=== PATIENT | male | born 1995 | race Caucasian/White ===

== ENCOUNTER → 2018-05-30 | Outpatient (REF) | payer OTHER | LOC: M SMT 13:23 | DX: R33.9 Retention of urine, unspecified (principal) ==

== ENCOUNTER → 2018-06-04 | Outpatient (CLI) | payer OTHER | LOC: M RAD 09:02 | DX: R33.9 Retention of urine, unspecified (principal); R39.89 Other symptoms and signs involving the genitourinary system; N13.4 Hydroureter | CPT/HCPCS: 74176 ==

== ENCOUNTER → 2018-06-08 | Outpatient (CLI) | payer OTHER ==
[2018-06-08 13:39] LABS: ANION GAP 7 MEQ/L (8-16); BLOOD UREA NITROGEN 45 MG/DL (7-18); CALCIUM LEVEL 9.2 MG/DL (8.5-10.1); CARBON DIOXIDE LEVEL 30 MEQ/L (21-32); CHLORIDE LEVEL 108 MEQ/L (98-107); CREATININE FOR GFR 4.61 MG/DL (0.70-1.30); GLOMERULAR FILTRATION RATE 17.1 (>60); GLUCOSE, FASTING 86 MG/DL (70-100); POTASSIUM SERUM 5.2 MEQ/L (3.5-5.1); PSA SCREENING 0.52 NG/ML (< 4.0); SODIUM LEVEL 145 MEQ/L (136-145)
== END ==
LOC: M SMT 09:01
DX: R39.89 Other symptoms and signs involving the genitourinary system (principal); R33.9 Retention of urine, unspecified
CPT/HCPCS: 80048

== ENCOUNTER 2018-06-21 09:22 | Observation (INO) | payer OTHER ==
[2018-06-21] MEDS ORDERED: METAL LOCK LOOP XX (10:06)
[2018-06-21 10:08] LABS: BASO % 0.3 % (0.0-1.0); EOS # 0.1 10^3/uL (0.0-0.50); EOS % 0.6 % (0.0-3.0); HEMATOCRIT 30.1 % (42.0-52.0); HEMOGLOBIN 9.6 g/dl (13.5-17.5); IMMATURE GRANULOCYTE % 0.3 % (0-3.0); LYMPH # 1.1 10^3/uL (1.5-6.5); LYMPH % 9.4 % (24.0-44.0); MEAN CORPUSCULAR HEMOGLOBIN 29.4 pg (27.0-33.0); MEAN CORPUSCULAR HGB CONC 31.9 g/dl (32.0-36.5); MEAN CORPUSCULAR VOLUME 92.3 fl (80.0-96.0); MONO % 8.1 % (0.0-5.0); NEUTROPHILS # 9.9 10^3/uL (1.8-7.7); NEUTROPHILS % 81.3 % (36.0-66.0); PLATELET COUNT, AUTOMATED 335 10^3/uL (150-450); RED BLOOD COUNT 3.26 10^6/uL (4.30-6.10); RED CELL DISTRIBUTION WIDTH 12.7 % (11.5-14.5); WHITE BLOOD COUNT 12.2 10^3/uL (4.0-10.0)
[2018-06-21 10:35] LABS: ALBUMIN 3.1 GM/DL (3.2-5.2); ALBUMIN/GLOBULIN RATIO 0.78 (1.00-1.93); ALKALINE PHOSPHATASE 54 U/L (45-117); ALT/SGPT 14 U/L (12-78); ANION GAP 9 MEQ/L (8-16); AST/SGOT 11 U/L (7-37); BILIRUBIN,DIRECT < 0.1 MG/DL (0.0-0.2); BILIRUBIN,TOTAL 0.2 MG/DL (0.2-1.0); BLOOD UREA NITROGEN 50 MG/DL (7-18); CALCIUM LEVEL 8.9 MG/DL (8.5-10.1); CARBON DIOXIDE LEVEL 25 MEQ/L (21-32); CHLORIDE LEVEL 105 MEQ/L (98-107); CREATININE FOR GFR 5.93 MG/DL (0.70-1.30); GLOMERULAR FILTRATION RATE 12.8 (>60); GLUCOSE, FASTING 101 MG/DL (70-100); LIPASE 243 U/L (73-393); MAGNESIUM LEVEL 2.2 MG/DL (1.8-2.4); PHOSPHORUS LEVEL 2.5 MG/DL (2.5-4.9); POTASSIUM SERUM 5.2 MEQ/L (3.5-5.1); SODIUM LEVEL 139 MEQ/L (136-145); TOTAL PROTEIN 7.1 GM/DL (6.4-8.2)
[2018-06-21 10:37] LABS: CK-MB VALUE MASS < 1.0 NG/ML (<3.6); CPK CREATINE PHOSPHOKINASE 366 U/L (39-308); MB/CK RELATIVE INDEX 0.27 (< OR =4); TROPONIN I < 0.02 NG/ML (< 0.10)
[2018-06-21] MEDS: MORPHINE 4 MG/ML 1ML VIAL/SYRINGE (J2270) IV (10:49)
[2018-06-21] MEDS: LIDOCAINE 2% 5ML JELLY UROJET TOP (10:50)
[2018-06-21 12:11] LABS: AMORPHOUS SEDIMENT RFX SMALL (NEGATIVE); KETONE, URINE AUTO RFX NEGATIVE (NEGATIVE); MUCUS, URINE RFX SMALL (NEGATIVE); NITRITE, URINE AUTO RFX NEGATIVE (NEGATIVE); RBC, URINE AUTO RFX 17 /HPF (0-3); SQUAM EPITHELIAL CELL UR AURFX 0 /HPF (0-6)
[2018-06-21 12:16] LABS: LEUKOCYTE ESTERASE UR AUTO RFX 1+ (NEGATIVE); WBC, URINE AUTO RFX 34 /HPF (0-3)
[2018-06-21] MEDS: HEPARIN SOD (PORCINE) 5000 UNITS/ML VIAL SC ×2 (15:32→21:01)
[2018-06-21 19:13] LABS: FERRITIN 512 NG/ML (26-388); IRON (FE) 14 UG/DL (65-175); PERCENT SATURATION 6.8 % (19.7-50.0); TOTAL IRON BINDING CAPACITY 207 UG/DL (250-450)
[2018-06-21 19:22] LABS: TOTAL 25(OH) VITAMIN D 17.5 NG/ML (30.0-100.0)
[2018-06-21 19:22] LABS: PTH INTACT 66.2 PG/ML (18.5-88.0)
[2018-06-21 20:28] LABS: CHLAMYDIA DNA AMPLIFICATION NEGATIVE (NEGATIVE); GC DNA AMPLIFICATION NEGATIVE (NEGATIVE)
[2018-06-21] MEDS: NS 0.45% 1,000 ML IV (21:01)
[2018-06-21] MEDS: ACETAMINOPHEN TAB 650MG DOSE (2X325MG) PO (21:02)
[2018-06-22] MEDS: HEPARIN SOD (PORCINE) 5000 UNITS/ML VIAL SC (06:54)
[2018-06-22] MEDS: NS 0.45% 1,000 ML IV (06:54)
[2018-06-22 08:07] LABS: BASO # 0.1 10^3/uL (0.0-0.2); BASO % 0.7 % (0.0-1.0); EOS # 0.2 10^3/uL (0.0-0.50); EOS % 1.5 % (0.0-3.0); HEMATOCRIT 32.6 % (42.0-52.0); HEMOGLOBIN 10.3 g/dl (13.5-17.5); IMMATURE GRANULOCYTE % 0.4 % (0-3.0); LYMPH # 2.4 10^3/uL (1.5-6.5); LYMPH % 22.4 % (24.0-44.0); MEAN CORPUSCULAR HGB CONC 31.6 g/dl (32.0-36.5); MEAN CORPUSCULAR VOLUME 91.8 fl (80.0-96.0); MONO # 0.9 10^3/uL (0.0-0.8); MONO % 8.5 % (0.0-5.0); NEUTROPHILS # 7.2 10^3/uL (1.8-7.7); NEUTROPHILS % 66.5 % (36.0-66.0); PLATELET COUNT, AUTOMATED 360 10^3/uL (150-450); RED BLOOD COUNT 3.55 10^6/uL (4.30-6.10); RED CELL DISTRIBUTION WIDTH 12.5 % (11.5-14.5); WHITE BLOOD COUNT 10.8 10^3/uL (4.0-10.0)
[2018-06-22 08:26] LABS: BLOOD UREA NITROGEN 49 MG/DL (7-18); GLUCOSE, FASTING 95 MG/DL (70-100)
[2018-06-22 08:27] LABS: ANION GAP 9 MEQ/L (8-16); CALCIUM LEVEL 9.3 MG/DL (8.5-10.1); CARBON DIOXIDE LEVEL 25 MEQ/L (21-32); CHLORIDE LEVEL 104 MEQ/L (98-107); CREATININE FOR GFR 5.73 MG/DL (0.70-1.30); GLOMERULAR FILTRATION RATE 13.3 (>60); MAGNESIUM LEVEL 1.8 MG/DL (1.8-2.4); POTASSIUM SERUM 4.9 MEQ/L (3.5-5.1); SODIUM LEVEL 138 MEQ/L (136-145)
[2018-06-22 08:29] LABS: CHOLESTEROL LEVEL 139 MG/DL (<200); HDL CHOLESTEROL 25 MG/DL (>40); LDL CHOLESTEROL 75 MG/DL (<100); NON-HDL-C 114 MG/DL; TRIGLYCERIDES LEVEL 196 MG/DL (<150)
[2018-06-22] MEDS: TAMSULOSIN 0.4 MG CAP PO (09:47)
[2018-06-22] MEDS: VITAMIN D 1,000 INTERNATIONAL UNITS TABLET PO (09:47)
[2018-06-22] MEDS: FERROUS GLUCONATE 324 MG TAB PO (09:47)
[2018-06-22 11:00] LABS: HIV 1&2 SCREEN CENTAUR NEGATIVE (NEGATIVE)
[2018-06-22] MEDS: FINASTERIDE 5 MG TAB PO (13:58)
== END 2018-06-22 15:00 | disposition home or self-care (01) ==
LOC: M ED 09:22 → M ED INP 13:26 → M PED 14:42
DX: N17.9 Acute kidney failure, unspecified (principal); N18.9 Chronic kidney disease, unspecified; I12.9 Hypertensive chronic kidney disease with stage 1 through stage 4 chronic kidney disease, or unspecified chronic kidney disease; N40.1 Benign prostatic hyperplasia with lower urinary tract symptoms; N13.30 Unspecified hydronephrosis; D50.9 Iron deficiency anemia, unspecified; Z79.899 Other long term (current) drug therapy
CPT/HCPCS: J2270

== ENCOUNTER → 2018-06-29 | Outpatient (CLI) | payer OTHER ==
[2018-06-29 17:35] LABS: ANION GAP 9 MEQ/L (8-16); BLOOD UREA NITROGEN 28 MG/DL (7-18); CALCIUM LEVEL 8.6 MG/DL (8.5-10.1); CARBON DIOXIDE LEVEL 28 MEQ/L (21-32); CHLORIDE LEVEL 106 MEQ/L (98-107); CREATININE FOR GFR 3.81 MG/DL (0.70-1.30); GLOMERULAR FILTRATION RATE 21.2 (>60); GLUCOSE, FASTING 100 MG/DL (70-100); POTASSIUM SERUM 4.8 MEQ/L (3.5-5.1); SODIUM LEVEL 143 MEQ/L (136-145)
== END ==
LOC: M SMT 15:06
DX: R33.9 Retention of urine, unspecified (principal)
CPT/HCPCS: 80048

== ENCOUNTER → 2018-07-02 | Outpatient (REF) | payer OTHER ==
[2018-07-03 13:25] LABS: APPEARANCE, URINE CLOUDY (CLEAR); BACTERIA, URINE AUTO 1+ (NEGATIVE); BILIRUBIN, URINE AUTO NEGATIVE (NEGATIVE); BLOOD, URINE BLOOD 1+ (NEGATIVE); COLOR, URINE YELLOW (YELLOW); GLUCOSE, URINE (UA) AUTO NEGATIVE (NEGATIVE); KETONE, URINE AUTO NEGATIVE (NEGATIVE); LEUKOCYTE ESTERASE, URINE AUTO 3+ (NEGATIVE); NITRITE, URINE AUTO NEGATIVE (NEGATIVE); PROTEIN, URINE AUTO 2+ mg/dL (NEGATIVE); RBC, URINE AUTO 5 /HPF (0-3); SPECIFIC GRAVITY URINE AUTO 1.009 (1.002-1.035); SQUAMOUS EPITHELIAL CELL UR AU 0 /HPF (0-6); UROBILINOGEN, URINE AUTO 0.2 mg/dL (0.0-2.0); WBC, URINE AUTO TNTC /HPF (0-3)
== END ==
LOC: M SMT 07-03 13:01
DX: R33.9 Retention of urine, unspecified (principal)

== ENCOUNTER → 2018-07-25 | Outpatient (CLI) | payer OTHER ==
[~2018-07-25] MED LIST: CYSTO-CONRAY II 17.2% 250ML VIAL (Q9958) As Ordered
== END ==
LOC: M RADPRO 12:11
DX: N39.0 Urinary tract infection, site not specified (principal); R33.9 Retention of urine, unspecified
CPT/HCPCS: 52000

== ENCOUNTER → 2018-08-07 | Outpatient (CLI) | payer OTHER ==
[~2018-08-07] MED LIST changes: -CYSTO-CONRAY II 17.2% 250ML VIAL (Q9958) As Ordered; +FUROSEMIDE 20 MG/2 ML VIAL (J1940) As Ordered
== END ==
LOC: M RAD 12:24
DX: N39.0 Urinary tract infection, site not specified (principal); R33.9 Retention of urine, unspecified; N13.30 Unspecified hydronephrosis
CPT/HCPCS: J1940

== ENCOUNTER → 2018-11-07 | Outpatient (REF) | payer OTHER ==
[~2018-11-07] MED LIST changes: +FERR32TA PO; +FINA5TAB2 PO; +FLOM0.4C39 PO; -FUROSEMIDE 20 MG/2 ML VIAL (J1940) As Ordered; +LISI10TA4 PO; +VITAD1000T PO
[2018-11-07 13:47] LABS: PERCENT SATURATION 25.3 % (19.7-50.0)
== END ==
LOC: M LAB REF 13:19
PROVIDERS: ATTEND Internal Medicine Nephrology
DX: D50.9 Iron deficiency anemia, unspecified (principal)

== ENCOUNTER 2021-09-30 07:14 | Inpatient (IN) | payer OTHER ==
[~2021-09-30] VITALS: Ht 175.3 cm; Wt 74.1 kg
[~2021-09-30 07:14] MED LIST changes: +CHOL100029 PO; +LISI10TA22 PO; -LISI10TA4 PO; -VITAD1000T PO
[2021-09-30] MEDS ORDERED: LIDOCAINE 2% 5ML JELLY UROJET TOP ONE (07:35)
[2021-09-30] MEDS ORDERED: KETOROLAC 30 MG/ML 1ML VIAL IV ONE (08:55)
[2021-09-30] MEDS ORDERED: NS 1,000 ML IV ONE ×2 (08:55→09:25)
[2021-09-30 09:13] LABS: BASO % 0.2 % (0.0-1.0); HEMATOCRIT 46.3 % (42.0-52.0); HEMOGLOBIN 15.9 g/dl (13.5-17.5); LYMPH # 0.5 10^3/uL (1.5-5.0); LYMPH % 2.3 % (24.0-44.0); MEAN CORPUSCULAR HEMOGLOBIN 30.6 pg (27.0-33.0); MEAN CORPUSCULAR HGB CONC 34.3 g/dl (32.0-36.5); MEAN CORPUSCULAR VOLUME 89.2 fl (80.0-96.0); MONO # 1.4 10^3/uL (0.0-0.8); MONO % 6.1 % (2.0-8.0); NEUTROPHILS # 20.3 10^3/uL (1.5-8.5); NEUTROPHILS % 90.7 % (36.0-66.0); PLATELET COUNT, AUTOMATED 223 10^3/uL (150-450); RED BLOOD COUNT 5.19 10^6/uL (4.30-6.10); WHITE BLOOD COUNT 22.3 10^3/uL (4.0-10.0)
[2021-09-30] MEDS ORDERED: MORPHINE 4 MG/ML 1ML VIAL/SYRINGE (J2270) IV ONE (09:25)
[2021-09-30 09:34] LABS: ERYTHROCYTE SEDIMENTATION RATE 3 mm/hr (0-15)
[2021-09-30 09:39] LABS: ALBUMIN 4.3 GM/DL (3.2-5.2); BILIRUBIN,DIRECT 0.2 MG/DL (0.0-0.2); BILIRUBIN,TOTAL 0.9 MG/DL (0.2-1.0); C REACTIVE PROTEIN QUANTITATIV 8.83 MG/DL (0.00-0.30); TOTAL PROTEIN 7.7 GM/DL (6.4-8.2)
[2021-09-30] MEDS ORDERED: PIPERACILLIN/TAZOBACTAM SOD 3.375 GM in D5W MINI-BAG PLUS 50 ML IV ONE (10:50)
[2021-09-30 11:13] LABS: GC DNA AMPLIFICATION NEGATIVE (NEGATIVE)
[2021-09-30] MEDS ORDERED: ALLO300T2 PO (11:59)
[2021-09-30] MEDS ORDERED: AMLO1TAB24 PO (11:59)
[2021-09-30] MEDS ORDERED: CALC1CAP31 PO (11:59)
[2021-09-30] MEDS ORDERED: D31000TA2 PO (11:59)
[2021-09-30] MEDS ORDERED: FINA5TAB2 PO (11:59)
[2021-09-30] MEDS ORDERED: HOME MED LIST COMPLETE! XX SCH (12:00)
[2021-09-30] MEDS ORDERED: ACETAMINOPHEN TAB 650MG DOSE (2X325MG) PO PRN (12:20)
[2021-09-30 12:27] LABS: CREATININE FOR GFR 1.96 MG/DL (0.70-1.30); GLOMERULAR FILTRATION RATE 44.6 (>60); POTASSIUM SERUM 3.6 MEQ/L (3.5-5.1)
[2021-09-30 14:00] VITALS: BP 158/72
[2021-09-30] MEDS: TAMSULOSIN 0.4 MG CAP PO SCH (14:14)
[2021-09-30] MEDS: VITAMIN D 1,000 INTERNATIONAL UNITS TABLET PO SCH (14:14)
[2021-09-30] MEDS: allopurinoL 300 MG TAB PO SCH (14:14)
[2021-09-30] MEDS: FINASTERIDE 5 MG TAB PO SCH (14:14)
[2021-09-30 15:52] VITALS: BP 158/72
[2021-09-30 16:24] LABS: HEMATOCRIT 42.3 % (42.0-52.0); HEMOGLOBIN 14.4 g/dl (13.5-17.5); MEAN CORPUSCULAR HEMOGLOBIN 30.4 pg (27.0-33.0); MEAN CORPUSCULAR VOLUME 89.2 fl (80.0-96.0); PLATELET COUNT, AUTOMATED 188 10^3/uL (150-450); RED BLOOD COUNT 4.74 10^6/uL (4.30-6.10); WHITE BLOOD COUNT 21.8 10^3/uL (4.0-10.0)
[2021-09-30] MEDS ORDERED: MORPHINE 2 MG/ML 1ML VIAL (J2270) IV PRN ×2 (17:25→20:30)
[2021-09-30] MEDS: PIPERACILLIN/TAZOBACTAM SOD 3.375 GM in D5W MINI-BAG PLUS 50 ML IV SCH (17:27)
[2021-09-30] MEDS ORDERED: BUPIVACAINE/EPIN 0.25% 30 ML VIAL As Ordered ONE (17:28)
[2021-09-30] MEDS ORDERED: KETOROLAC 60MG 2ML VIAL As Ordered ONE (18:05)
[2021-09-30] MEDS ORDERED: ONDANSETRON 4MG/2ML VIAL As Ordered ONE (18:05)
[2021-09-30] MEDS ORDERED: propofoL 200 MG/20 ML VIAL As Ordered ONE (18:05)
[2021-09-30] MEDS ORDERED: dexameTHASONE 4 MG/ML 1ML VIAL (J1100 PER 1MG) As Ordered ONE (18:05)
[2021-09-30] MEDS ORDERED: ACETAMINOPHEN 1000MG 100ML IV BTL (OFIRMEV) (J0131 PER 10MG) As Ordered ONE (18:05)
[2021-09-30] MEDS ORDERED: METOCLOPRAMIDE INJ 10MG/2ML VIAL (J2765 PER 1) As Ordered ONE (18:05)
[2021-09-30] MEDS ORDERED: LIDOCAINE 2% 100MG/5ML SDV (FOR ANES.) As Ordered ONE (18:05)
[2021-09-30] MEDS ORDERED: ROCURONIUM BROMIDE 50 MG/5 ML VIAL As Ordered ONE (18:05)
[2021-09-30] MEDS ORDERED: fentaNYL 100 MCG/2 ML INJECTION As Ordered ONE (18:06)
[2021-09-30] MEDS ORDERED: MIDAZOLAM INJ 2MG/2ML VIAL (J2250 PER 1MG) As Ordered ONE (18:06)
[2021-09-30] MEDS ORDERED: SUGAMMADEX SODIUM 500 MG/5 ML VIAL (BRIDION) As Ordered ONE (20:19)
[2021-09-30] MEDS ORDERED: ONDANSETRON 4MG/2ML VIAL IV PRN (20:40)
[2021-09-30] MEDS ORDERED: oxyCODONE 5MG TAB PO PRN (20:40)
[2021-09-30] MEDS ORDERED: fentaNYL 100 MCG/2 ML INJECTION IV PRN (20:40)
[2021-09-30] MEDS ORDERED: LR 1,000 ML IV SCH (20:40)
[2021-09-30] MEDS ORDERED: KETOROLAC 30 MG/ML 1ML VIAL IV SCH (21:00)
[2021-09-30 21:15] VITALS: BP 126/84
[2021-09-30 21:45] VITALS: BP 132/71
[2021-09-30 22:15] VITALS: BP 132/70
[2021-09-30 23:15] VITALS: BP 129/72
[2021-10-01] VITALS (8 sets, daily range): BP systolic 103–144; BP diastolic 60–93
[2021-10-01] MEDS: KETOROLAC 30 MG/ML 1ML VIAL IV SCH ×5 (05:57→23:40)
[2021-10-01] MEDS: PIPERACILLIN/TAZOBACTAM SOD 3.375 GM in D5W MINI-BAG PLUS 50 ML IV SCH ×6 (05:57→23:41)
[2021-10-01 07:28] LABS: HEMATOCRIT 45.3 % (42.0-52.0); HEMOGLOBIN 15.2 g/dl (13.5-17.5); MEAN CORPUSCULAR HEMOGLOBIN 30.8 pg (27.0-33.0); MEAN CORPUSCULAR HGB CONC 33.6 g/dl (32.0-36.5); MEAN CORPUSCULAR VOLUME 91.9 fl (80.0-96.0); PLATELET COUNT, AUTOMATED 189 10^3/uL (150-450); RED BLOOD COUNT 4.93 10^6/uL (4.30-6.10)
[2021-10-01 07:45] LABS: CALCIUM LEVEL 9.5 MG/DL (8.5-10.1); CREATININE FOR GFR 2.28 MG/DL (0.70-1.30); GLOMERULAR FILTRATION RATE 37.4 (>60); POTASSIUM SERUM 4.2 MEQ/L (3.5-5.1)
[2021-10-01] MEDS: FINASTERIDE 5 MG TAB PO SCH (08:28)
[2021-10-01] MEDS: allopurinoL 300 MG TAB PO SCH (08:28)
[2021-10-01] MEDS: VITAMIN D 1,000 INTERNATIONAL UNITS TABLET PO SCH (08:28)
[2021-10-01] MEDS: TAMSULOSIN 0.4 MG CAP PO SCH (08:28)
[2021-10-01] MEDS ORDERED: INFLUENZA QUADRIVALENT PF VACCINE 0.5ML SYRINGE IM ONE (09:00)
[2021-10-01] MEDS ORDERED: CALCITRIOL 0.25 MCG CAP (S0169) PO SCH (09:00)
[2021-10-02] MEDS: PIPERACILLIN/TAZOBACTAM SOD 3.375 GM in D5W MINI-BAG PLUS 50 ML IV SCH (05:08)
[2021-10-02] MEDS: KETOROLAC 30 MG/ML 1ML VIAL IV SCH ×2 (05:09→12:00)
[2021-10-02 06:00] VITALS: BP 142/86
[2021-10-02] MEDS: TAMSULOSIN 0.4 MG CAP PO SCH (08:46)
[2021-10-02] MEDS: VITAMIN D 1,000 INTERNATIONAL UNITS TABLET PO SCH (08:46)
[2021-10-02] MEDS: allopurinoL 300 MG TAB PO SCH (08:46)
[2021-10-02] MEDS: FINASTERIDE 5 MG TAB PO SCH (08:46)
[2021-10-02 08:47] VITALS: BP 145/104
[2021-10-02 09:22] LABS: HEMATOCRIT 43.3 % (42.0-52.0); HEMOGLOBIN 14.6 g/dl (13.5-17.5); MEAN CORPUSCULAR HEMOGLOBIN 30.7 pg (27.0-33.0); MEAN CORPUSCULAR HGB CONC 33.7 g/dl (32.0-36.5); PLATELET COUNT, AUTOMATED 219 10^3/uL (150-450); RED BLOOD COUNT 4.76 10^6/uL (4.30-6.10); WHITE BLOOD COUNT 17.8 10^3/uL (4.0-10.0)
[2021-10-02] MEDS ORDERED: AMOX875T2 PO (09:55)
[2021-10-02] MEDS ORDERED: AUGMENTIN 875 MG TAB PO ONE (11:00)
[2021-10-03 15:51] LABS: MAGNESIUM LEVEL 1.6 MG/DL (1.7-2.2)
== END 2021-10-02 13:39 | disposition home or self-care (01) | DRG 340 ==
LOC: EDBD 07:14 → M ED 07:14 → M ED INP 12:20 → ENRESERV 14:08 → M MSPAV 15:04
PROVIDERS: ADMIT Family Medicine; ATTEND Family Medicine
PROC: 0DTJ4ZZ Resection of Appendix, Percutaneous Endoscopic Approach (ICD-10-PCS; principal; 2021-09-30 18:00)
DX: K35.32 Acute appendicitis with perforation, localized peritonitis, and gangrene, without abscess (principal); N40.1 Benign prostatic hyperplasia with lower urinary tract symptoms; N13.9 Obstructive and reflux uropathy, unspecified; Z79.899 Other long term (current) drug therapy

== ENCOUNTER 2021-11-06 14:57 | Inpatient (IN) | payer OTHER ==
[~2021-11-06] VITALS: Ht 175.3 cm; Wt 76.0 kg
[~2021-11-06 14:57] MED LIST changes: +ALLO300T2 PO; +AMLO1TAB24 PO; +AMOX875T2 PO; +CALC1CAP31 PO; +VITA100093 PO
[2021-11-06] MEDS: NS 1,000 ML IV SCH (15:00)
[2021-11-06 16:06] LABS: BASO # 0.1 10^3/uL (0.0-0.2); BASO % 0.3 % (0.0-1.0); EOS % 0.1 % (0.0-3.0); HEMATOCRIT 42.3 % (42.0-52.0); HEMOGLOBIN 14.5 g/dl (13.5-17.5); LYMPH # 0.8 10^3/uL (1.5-5.0); LYMPH % 3.8 % (24.0-44.0); MEAN CORPUSCULAR HEMOGLOBIN 30.1 pg (27.0-33.0); MEAN CORPUSCULAR HGB CONC 34.3 g/dl (32.0-36.5); MEAN CORPUSCULAR VOLUME 87.9 fl (80.0-96.0); MONO % 9.1 % (2.0-8.0); NEUTROPHILS # 16.8 10^3/uL (1.5-8.5); NEUTROPHILS % 86.1 % (36.0-66.0); PLATELET COUNT, AUTOMATED 232 10^3/uL (150-450); RED BLOOD COUNT 4.81 10^6/uL (4.30-6.10); WHITE BLOOD COUNT 19.5 10^3/uL (4.0-10.0)
[2021-11-06 16:25] LABS: ERYTHROCYTE SEDIMENTATION RATE 47 mm/hr (0-15)
[2021-11-06 16:31] LABS: MONO # 1.8 10^3/uL (0.0-0.8)
[2021-11-06 16:33] LABS: ALBUMIN 3.6 GM/DL (3.2-5.2); BILIRUBIN,TOTAL 0.6 MG/DL (0.2-1.0); C REACTIVE PROTEIN QUANTITATIV 15.4 MG/DL (0.00-0.30); CALCIUM LEVEL 9.1 MG/DL (8.5-10.1); CREATININE FOR GFR 2.3 MG/DL (0.70-1.30); GLOMERULAR FILTRATION RATE 37.1 (>60); POTASSIUM SERUM 3.7 MEQ/L (3.5-5.1); TOTAL PROTEIN 7.2 GM/DL (6.4-8.2)
[2021-11-06] MEDS ORDERED: cefTRIAXone SOD 1 GM in D5W MINI-BAG PLUS 50 ML IV ONE (16:50)
[2021-11-06] MEDS ORDERED: ACETAMINOPHEN 500 MG TAB PO ONE (16:55)
[2021-11-06] MEDS ORDERED: LIDOCAINE 2% 5ML JELLY UROJET TOP PRN (17:25)
[2021-11-06] MEDS ORDERED: NS 1,000 ML IV ONE ×2 (19:15→23:40)
[2021-11-06] MEDS ORDERED: HOME MED LIST COMPLETE! XX SCH (19:20)
[2021-11-06] MEDS: ACETAMINOPHEN TAB 650MG DOSE (2X325MG) PO PRN (21:38)
[2021-11-07] MEDS ORDERED: ACETAMINOPHEN 325 MG TAB PO ONE
[2021-11-07] MEDS ORDERED: HOME MED LIST COMPLETE! XX SCH (00:35)
[2021-11-07] MEDS: NS 1,000 ML IV SCH ×3 (02:45→22:32)
[2021-11-07] MEDS: ACETAMINOPHEN TAB 650MG DOSE (2X325MG) PO PRN ×2 (05:58→15:00)
[2021-11-07 08:00] VITALS: BP 125/66
[2021-11-07 08:35] LABS: BASO # 0.1 10^3/uL (0.0-0.2); BASO % 0.2 % (0.0-1.0); HEMATOCRIT 39.1 % (42.0-52.0); HEMOGLOBIN 13.1 g/dl (13.5-17.5); LYMPH # 1.1 10^3/uL (1.5-5.0); LYMPH % 4.6 % (24.0-44.0); MEAN CORPUSCULAR HEMOGLOBIN 29.8 pg (27.0-33.0); MEAN CORPUSCULAR HGB CONC 33.5 g/dl (32.0-36.5); MEAN CORPUSCULAR VOLUME 88.9 fl (80.0-96.0); NEUTROPHILS % 85.4 % (36.0-66.0); PLATELET COUNT, AUTOMATED 203 10^3/uL (150-450); WHITE BLOOD COUNT 23.4 10^3/uL (4.0-10.0)
[2021-11-07] MEDS: allopurinoL 300 MG TAB PO SCH (08:44)
[2021-11-07] MEDS: TAMSULOSIN 0.4 MG CAP PO SCH (08:44)
[2021-11-07] MEDS: VITAMIN D 1,000 INTERNATIONAL UNITS TABLET PO SCH (08:44)
[2021-11-07] MEDS: FINASTERIDE 5 MG TAB PO SCH (08:44)
[2021-11-07 08:54] LABS: MONO # 2.1 10^3/uL (0.0-0.8)
[2021-11-07 09:05] LABS: ACETAMINOPHEN LEVEL 7.3 UG/ML (10.0-30.0); CALCIUM LEVEL 8.4 MG/DL (8.5-10.1); CREATININE FOR GFR 1.8 MG/DL (0.70-1.30); GLOMERULAR FILTRATION RATE 48.8 (>60); MAGNESIUM LEVEL 1.7 MG/DL (1.8-2.4); POTASSIUM SERUM 3.7 MEQ/L (3.5-5.1)
[2021-11-07 09:44] LABS: C REACTIVE PROTEIN QUANTITATIV 17.7 MG/DL (0.00-0.30)
[2021-11-07 10:15] LABS: AMPHETAMINES LEVEL URINE NEGATIVE (NEGATIVE); BARBITURATES URINE NEGATIVE (NEGATIVE); BENZODIAZEPINES URINE NEGATIVE (NEGATIVE); CANNABINOIDS URINE POSITIVE (NEGATIVE); COCAINE METABOLITE URINE NEGATIVE (NEGATIVE); METHADONE URINE NEGATIVE (NEGATIVE); OPIATES URINE NEGATIVE (NEGATIVE); PHENCYCLIDINE URINE NEGATIVE (NEGATIVE)
[2021-11-07] MEDS: MAG SULF 1GM/100ML (MAG RUN) 1 GM in IV 1 EA IV SCH ×2 (12:03→16:40)
[2021-11-07 14:00] VITALS: BP 128/71
[2021-11-07] MEDS: HEPARIN SOD (PORCINE) 5000UNITS/ML 1ML VIAL/SYRINGE SQ SCH ×2 (14:38→21:26)
[2021-11-07] MEDS: PIPERACILLIN/TAZOBACTAM SOD 3.375 GM in D5W MINI-BAG PLUS 50 ML IV SCH ×2 (14:38→20:22)
[2021-11-07] MEDS ORDERED: cefTRIAXone SOD 1 GM in D5W MINI-BAG PLUS 50 ML IV SCH (17:00)
[2021-11-07 17:25] VITALS: BP 136/71
[2021-11-07 20:29] VITALS: BP 125/72
[2021-11-07] MEDS ORDERED: CHLORASEPTIC SPRAY MT PRN (21:35)
[2021-11-08] MEDS: PIPERACILLIN/TAZOBACTAM SOD 3.375 GM in D5W MINI-BAG PLUS 50 ML IV SCH ×4 (01:02→20:12)
[2021-11-08 05:39] VITALS: BP 124/81
[2021-11-08 06:44] LABS: BASO # 0.1 10^3/uL (0.0-0.2); BASO % 0.5 % (0.0-1.0); EOS % 0.3 % (0.0-3.0); HEMATOCRIT 35.5 % (42.0-52.0); LYMPH % 17.7 % (24.0-44.0); MEAN CORPUSCULAR HGB CONC 33.8 g/dl (32.0-36.5); MEAN CORPUSCULAR VOLUME 88.8 fl (80.0-96.0); MONO # 1.1 10^3/uL (0.0-0.8); MONO % 9.6 % (2.0-8.0); NEUTROPHILS # 8.2 10^3/uL (1.5-8.5); NEUTROPHILS % 71.5 % (36.0-66.0); PLATELET COUNT, AUTOMATED 219 10^3/uL (150-450); WHITE BLOOD COUNT 11.5 10^3/uL (4.0-10.0)
[2021-11-08 07:04] LABS: C REACTIVE PROTEIN QUANTITATIV 18.8 MG/DL (0.00-0.30); CALCIUM LEVEL 8.9 MG/DL (8.5-10.1); CREATININE FOR GFR 1.85 MG/DL (0.70-1.30); GLOMERULAR FILTRATION RATE 47.3 (>60); POTASSIUM SERUM 3.6 MEQ/L (3.5-5.1)
[2021-11-08] MEDS ORDERED: VANCOMYCIN HCL 1,000 MG, VIAL MATE ADAPTER 1 EACH in NS 250 ML IV SCH (07:05)
[2021-11-08] MEDS ORDERED: ATORVASTATIN 20 MG TAB PO SCH (09:00)
[2021-11-08] MEDS ORDERED: ASPIRIN 81 MG CHEW TABLET PO SCH (09:00)
[2021-11-08] MEDS ORDERED: CALCITRIOL 0.25 MCG CAP (S0169) PO SCH (09:00)
[2021-11-08] MEDS: TAMSULOSIN 0.4 MG CAP PO SCH (09:05)
[2021-11-08] MEDS: FINASTERIDE 5 MG TAB PO SCH (09:05)
[2021-11-08] MEDS: VITAMIN D 1,000 INTERNATIONAL UNITS TABLET PO SCH (09:05)
[2021-11-08] MEDS: NS 1,000 ML IV SCH ×2 (09:05→13:12)
[2021-11-08] MEDS: allopurinoL 300 MG TAB PO SCH (09:05)
[2021-11-08] MEDS: HEPARIN SOD (PORCINE) 5000UNITS/ML 1ML VIAL/SYRINGE SQ SCH ×3 (09:10→21:24)
[2021-11-08] MEDS ORDERED: VANCOMYCIN HCL 750 MG, VIAL MATE ADAPTER 1 EACH in NS 250 ML IV ONE (10:00)
[2021-11-08] MEDS: VANCOMYCIN HCL 750 MG, VIAL MATE ADAPTER 1 EACH in NS 250 ML IV SCH ×2 (11:44→21:24)
[2021-11-08 14:45] VITALS: BP 121/76
[2021-11-08 22:00] VITALS: BP 120/70
[2021-11-09] MEDS ORDERED: RAMELTEON 8 MG TAB (ROZEREM) PO PRN (01:00)
[2021-11-09] MEDS ORDERED: hydrOXYzine 50 MG TAB PO ONE (01:00)
[2021-11-09] MEDS: PIPERACILLIN/TAZOBACTAM SOD 3.375 GM in D5W MINI-BAG PLUS 50 ML IV SCH ×2 (01:41→08:32)
[2021-11-09] MEDS: NS 1,000 ML IV SCH (05:21)
[2021-11-09] MEDS: HEPARIN SOD (PORCINE) 5000UNITS/ML 1ML VIAL/SYRINGE SQ SCH (05:32)
[2021-11-09 06:00] VITALS: BP 110/64
[2021-11-09 08:05] LABS: BASO # 0.1 10^3/uL (0.0-0.2); BASO % 0.7 % (0.0-1.0); EOS # 0.3 10^3/uL (0.0-0.5); EOS % 3.4 % (0.0-3.0); HEMATOCRIT 38.5 % (42.0-52.0); HEMOGLOBIN 12.7 g/dl (13.5-17.5); LYMPH # 2.2 10^3/uL (1.5-5.0); LYMPH % 25.6 % (24.0-44.0); MEAN CORPUSCULAR HEMOGLOBIN 29.7 pg (27.0-33.0); MEAN CORPUSCULAR VOLUME 90.2 fl (80.0-96.0); MONO # 0.6 10^3/uL (0.0-0.8); MONO % 6.9 % (2.0-8.0); NEUTROPHILS # 5.4 10^3/uL (1.5-8.5); NEUTROPHILS % 63.2 % (36.0-66.0); PLATELET COUNT, AUTOMATED 255 10^3/uL (150-450); RED BLOOD COUNT 4.27 10^6/uL (4.30-6.10); WHITE BLOOD COUNT 8.6 10^3/uL (4.0-10.0)
[2021-11-09] MEDS: allopurinoL 300 MG TAB PO SCH (08:33)
[2021-11-09] MEDS: TAMSULOSIN 0.4 MG CAP PO SCH (08:33)
[2021-11-09] MEDS: FINASTERIDE 5 MG TAB PO SCH (08:33)
[2021-11-09 08:34] LABS: CALCIUM LEVEL 8.7 MG/DL (8.5-10.1); CREATININE FOR GFR 1.75 MG/DL (0.70-1.30); GLOMERULAR FILTRATION RATE 50.4 (>60); POTASSIUM SERUM 3.6 MEQ/L (3.5-5.1)
[2021-11-09 08:35] VITALS: BP 131/76
[2021-11-09] MEDS: VITAMIN D 1,000 INTERNATIONAL UNITS TABLET PO SCH (08:35)
[2021-11-09] MEDS ORDERED: LEVO750T13 PO ×2 (10:14→11:48)
[2021-11-09 14:00] VITALS: BP 128/74
== END 2021-11-09 14:42 | disposition home or self-care (01) | DRG 690 ==
LOC: M ED 14:57 → M ED INP 18:23 → ENRESERV 11-07 15:35 → M MSPAV 11-07 17:25
PROVIDERS: ADMIT Family Medicine; ATTEND Family Medicine
DX: N39.0 Urinary tract infection, site not specified (principal); I12.9 Hypertensive chronic kidney disease with stage 1 through stage 4 chronic kidney disease, or unspecified chronic kidney disease; N40.1 Benign prostatic hyperplasia with lower urinary tract symptoms; N18.30 Chronic kidney disease, stage 3 unspecified; R33.9 Retention of urine, unspecified; Z79.899 Other long term (current) drug therapy; Z90.49 Acquired absence of other specified parts of digestive tract; D72.829 Elevated white blood cell count, unspecified

== ENCOUNTER 2022-01-13 06:52 | Inpatient (IN) | payer OTHER ==
[~2022-01-13] VITALS: Ht 175.3 cm; Wt 76.2 kg
[~2022-01-13 06:52] MED LIST changes: +LEVO750T13 PO
[2022-01-13] MEDS ORDERED: LORazepam 2 MG/ML VIAL IV STA (07:33)
[2022-01-13] MEDS ORDERED: LIDOCAINE 2% 5ML JELLY UROJET TOP ONE ×2 (07:35→08:25)
[2022-01-13] MEDS ORDERED: NS 1,000 ML IV ONE ×2 (07:35→11:30)
[2022-01-13 08:12] LABS: BASO # 0.1 10^3/uL (0.0-0.2); BASO % 0.3 % (0.0-1.0); EOS % 0.2 % (0.0-3.0); HEMATOCRIT 48.8 % (42.0-52.0); HEMOGLOBIN 16.7 g/dl (13.5-17.5); LYMPH # 0.9 10^3/uL (1.5-5.0); LYMPH % 4.5 % (24.0-44.0); MEAN CORPUSCULAR HEMOGLOBIN 30.3 pg (27.0-33.0); MEAN CORPUSCULAR HGB CONC 34.2 g/dl (32.0-36.5); MEAN CORPUSCULAR VOLUME 88.6 fl (80.0-96.0); MONO # 1.5 10^3/uL (0.0-0.8); MONO % 7.2 % (2.0-8.0); NEUTROPHILS % 87.3 % (36.0-66.0); PLATELET COUNT, AUTOMATED 254 10^3/uL (150-450); RED BLOOD COUNT 5.51 10^6/uL (4.30-6.10); WHITE BLOOD COUNT 20.7 10^3/uL (4.0-10.0)
[2022-01-13] MEDS ORDERED: cefTRIAXone SOD 1 GM in D5W MINI-BAG PLUS 50 ML IV ONE ×2 (08:30→13:00)
[2022-01-13 08:32] LABS: ALBUMIN 3.8 GM/DL (3.2-5.2); BILIRUBIN,DIRECT 0.2 MG/DL (0.0-0.2); BILIRUBIN,TOTAL 0.7 MG/DL (0.2-1.0); CREATININE FOR GFR 2.41 MG/DL (0.70-1.30); GLOMERULAR FILTRATION RATE 34.8 (>60); POTASSIUM SERUM 3.9 MEQ/L (3.5-5.1); TOTAL PROTEIN 8.3 GM/DL (6.4-8.2)
[2022-01-13] MEDS ORDERED: ACETAMINOPHEN 500 MG TAB PO ONE (11:30)
[2022-01-13] MEDS ORDERED: HOME MED LIST COMPLETE! XX SCH (13:05)
[2022-01-13 13:43] LABS: INR 1.25; PROTHROMBIN TIME 16.1 SECONDS (12.7-14.5)
[2022-01-13 13:44] LABS: PARTIAL THROMBOPLASTIN TIME 34.8 SECONDS (25.9-37.0)
[2022-01-13 16:35] VITALS: BP 138/88
[2022-01-13] MEDS: HEPARIN SOD (PORCINE) 5000UNITS/ML 1ML VIAL/SYRINGE SQ SCH ×2 (16:56→20:44)
[2022-01-13] MEDS: NS 1,000 ML IV SCH ×2 (16:57→19:45)
[2022-01-13] MEDS ORDERED: ONDANSETRON 4MG/2ML VIAL IV PRN (17:00)
[2022-01-13] MEDS: ACETAMINOPHEN TAB 650MG DOSE (2X325MG) PO PRN (17:07)
[2022-01-13] MEDS ORDERED: KETOROLAC 30 MG/ML 1ML VIAL IV ONE (18:10)
[2022-01-13 19:58] VITALS: BP 116/71
[2022-01-13] MEDS: RAMELTEON 8 MG TAB (ROZEREM) PO SCH (20:44)
[2022-01-14] MEDS: NS 1,000 ML IV SCH ×3 (00:50→23:00)
[2022-01-14 05:16] VITALS: BP 113/69
[2022-01-14] MEDS: HEPARIN SOD (PORCINE) 5000UNITS/ML 1ML VIAL/SYRINGE SQ SCH ×3 (05:21→21:15)
[2022-01-14] MEDS: ACETAMINOPHEN TAB 650MG DOSE (2X325MG) PO PRN ×2 (05:22→14:45)
[2022-01-14 07:40] LABS: HEMATOCRIT 41.2 % (42.0-52.0); MEAN CORPUSCULAR HGB CONC 34.2 g/dl (32.0-36.5); MEAN CORPUSCULAR VOLUME 90.5 fl (80.0-96.0); PLATELET COUNT, AUTOMATED 223 10^3/uL (150-450); RED BLOOD COUNT 4.55 10^6/uL (4.30-6.10); WHITE BLOOD COUNT 20.8 10^3/uL (4.0-10.0)
[2022-01-14 07:41] LABS: HEMOGLOBIN 14.1 g/dl (13.5-17.5)
[2022-01-14 08:02] LABS: ALBUMIN 2.8 GM/DL (3.2-5.2); BILIRUBIN,TOTAL 0.5 MG/DL (0.2-1.0); CALCIUM LEVEL 7.9 MG/DL (8.5-10.1); CREATININE FOR GFR 2.51 MG/DL (0.70-1.30); GLOMERULAR FILTRATION RATE 33.2 (>60); POTASSIUM SERUM 3.6 MEQ/L (3.5-5.1)
[2022-01-14] MEDS: VITAMIN D 1,000 INTERNATIONAL UNITS TABLET PO SCH (08:45)
[2022-01-14] MEDS: TAMSULOSIN 0.4 MG CAP PO SCH (08:45)
[2022-01-14] MEDS: FINASTERIDE 5MG TAB PO SCH (08:45)
[2022-01-14] MEDS: allopurinoL 300 MG TAB PO SCH (08:45)
[2022-01-14] MEDS ORDERED: cefTRIAXone SOD 2 GM in D5W MINI-BAG PLUS 50 ML IV SCH (09:00)
[2022-01-14] MEDS: PIPERACILLIN/TAZOBACTAM SOD 3.375 GM in D5W MINI-BAG PLUS 50 ML IV SCH ×3 (09:38→21:15)
[2022-01-14 14:00] VITALS: BP 120/74
[2022-01-14] MEDS ORDERED: ACETAMINOPHEN *IV* 1,000 MG in IV 1 EA IV ONE (17:00)
[2022-01-14] MEDS ORDERED: VANCOMYCIN HCL 750 MG, VIAL MATE ADAPTER 1 EACH in NS 250 ML IV ONE ×2 (18:00→19:00)
[2022-01-14 19:00] VITALS: BP 124/62
[2022-01-14] MEDS: RAMELTEON 8 MG TAB (ROZEREM) PO SCH (21:15)
[2022-01-15] MEDS: NS 1,000 ML IV SCH ×3 (03:55→20:14)
[2022-01-15] MEDS: PIPERACILLIN/TAZOBACTAM SOD 3.375 GM in D5W MINI-BAG PLUS 50 ML IV SCH ×2 (05:13→09:07)
[2022-01-15] MEDS: HEPARIN SOD (PORCINE) 5000UNITS/ML 1ML VIAL/SYRINGE SQ SCH ×3 (05:13→21:54)
[2022-01-15 06:00] VITALS: BP 130/78
[2022-01-15 06:04] LABS: HEMATOCRIT 40.3 % (42.0-52.0); HEMOGLOBIN 13.4 g/dl (13.5-17.5); MEAN CORPUSCULAR HEMOGLOBIN 29.9 pg (27.0-33.0); MEAN CORPUSCULAR HGB CONC 33.3 g/dl (32.0-36.5); PLATELET COUNT, AUTOMATED 238 10^3/uL (150-450); RED BLOOD COUNT 4.48 10^6/uL (4.30-6.10); WHITE BLOOD COUNT 15.5 10^3/uL (4.0-10.0)
[2022-01-15] MEDS: FINASTERIDE 5MG TAB PO SCH (09:07)
[2022-01-15] MEDS: TAMSULOSIN 0.4 MG CAP PO SCH (09:07)
[2022-01-15] MEDS: VITAMIN D 1,000 INTERNATIONAL UNITS TABLET PO SCH (09:07)
[2022-01-15] MEDS: allopurinoL 300 MG TAB PO SCH (09:07)
[2022-01-15 10:59] LABS: ALBUMIN 2.5 GM/DL (3.2-5.2); BILIRUBIN,TOTAL 0.2 MG/DL (0.2-1.0); CALCIUM LEVEL 8.2 MG/DL (8.5-10.1); CREATININE FOR GFR 2.37 MG/DL (0.70-1.30); GLOMERULAR FILTRATION RATE 35.5 (>60); PHOSPHORUS LEVEL 2.2 MG/DL (2.5-4.9); POTASSIUM SERUM 4.1 MEQ/L (3.5-5.1); TOTAL PROTEIN 5.9 GM/DL (6.4-8.2)
[2022-01-15] MEDS: VANCOMYCIN HCL 1,000 MG, VIAL MATE ADAPTER 1 EACH in NS 250 ML IV SCH (13:28)
[2022-01-15 14:00] VITALS: BP 130/85
[2022-01-15] MEDS: RAMELTEON 8 MG TAB (ROZEREM) PO SCH (21:54)
[2022-01-15 22:37] VITALS: BP 133/88
[2022-01-16] MEDS: NS 1,000 ML IV SCH ×2 (03:47→15:24)
[2022-01-16] MEDS: HEPARIN SOD (PORCINE) 5000UNITS/ML 1ML VIAL/SYRINGE SQ SCH ×3 (05:42→21:24)
[2022-01-16 06:00] VITALS: BP 135/88
[2022-01-16 07:07] LABS: HEMATOCRIT 39.8 % (42.0-52.0); HEMOGLOBIN 13.4 g/dl (13.5-17.5); MEAN CORPUSCULAR HGB CONC 33.7 g/dl (32.0-36.5); MEAN CORPUSCULAR VOLUME 89.2 fl (80.0-96.0); PLATELET COUNT, AUTOMATED 247 10^3/uL (150-450); RED BLOOD COUNT 4.46 10^6/uL (4.30-6.10); WHITE BLOOD COUNT 8.7 10^3/uL (4.0-10.0)
[2022-01-16 07:41] LABS: ALBUMIN 2.5 GM/DL (3.2-5.2); BILIRUBIN,TOTAL 0.2 MG/DL (0.2-1.0); CALCIUM LEVEL 8.3 MG/DL (8.5-10.1); CREATININE FOR GFR 1.96 MG/DL (0.70-1.30); GLOMERULAR FILTRATION RATE 44.2 (>60); VANCOMYCIN LEVEL TROUGH 9.4 UG/ML (10.0-20.0)
[2022-01-16] MEDS: FINASTERIDE 5MG TAB PO SCH (09:44)
[2022-01-16] MEDS: TAMSULOSIN 0.4 MG CAP PO SCH (09:44)
[2022-01-16] MEDS: allopurinoL 300 MG TAB PO SCH (09:44)
[2022-01-16] MEDS: VITAMIN D 1,000 INTERNATIONAL UNITS TABLET PO SCH (09:44)
[2022-01-16] MEDS: VANCOMYCIN HCL 1,000 MG, VIAL MATE ADAPTER 1 EACH in NS 250 ML IV SCH ×2 (09:54→20:17)
[2022-01-16] MEDS: LACTOBACILLUS ACIDOPHILUS CAP (BACID) PO SCH ×2 (11:57→17:08)
[2022-01-16 14:00] VITALS: BP 135/86
[2022-01-16] MEDS: RAMELTEON 8 MG TAB (ROZEREM) PO SCH (20:18)
[2022-01-16 20:28] VITALS: BP 151/96
[2022-01-16 21:57] VITALS: BP 129/73
[2022-01-17] MEDS: NS 1,000 ML IV SCH (03:54)
[2022-01-17] MEDS: HEPARIN SOD (PORCINE) 5000UNITS/ML 1ML VIAL/SYRINGE SQ SCH (05:53)
[2022-01-17 06:00] VITALS: BP 129/74
[2022-01-17] MEDS ORDERED: RISATAB3 PO (07:14)
[2022-01-17 07:19] LABS: HEMATOCRIT 39.3 % (42.0-52.0); MEAN CORPUSCULAR HEMOGLOBIN 30.3 pg (27.0-33.0); MEAN CORPUSCULAR HGB CONC 33.1 g/dl (32.0-36.5); MEAN CORPUSCULAR VOLUME 91.6 fl (80.0-96.0); PLATELET COUNT, AUTOMATED 303 10^3/uL (150-450); RED BLOOD COUNT 4.29 10^6/uL (4.30-6.10); WHITE BLOOD COUNT 8.4 10^3/uL (4.0-10.0)
[2022-01-17 07:53] LABS: ALBUMIN 2.6 GM/DL (3.2-5.2); ALT/SGPT 12 U/L (12-78); BILIRUBIN,TOTAL 0.2 MG/DL (0.2-1.0); BLOOD UREA NITROGEN 11 MG/DL (7-18); CALCIUM LEVEL 8.8 MG/DL (8.5-10.1); CARBON DIOXIDE LEVEL 25 MEQ/L (21-32); CHLORIDE LEVEL 114 MEQ/L (98-107); CREATININE FOR GFR 1.93 MG/DL (0.70-1.30); GLUCOSE, FASTING 90 MG/DL (70-100); POTASSIUM SERUM 3.8 MEQ/L (3.5-5.1); SODIUM LEVEL 147 MEQ/L (136-145); TOTAL PROTEIN 6.3 GM/DL (6.4-8.2)
[2022-01-17] MEDS: allopurinoL 300 MG TAB PO SCH (08:12)
[2022-01-17] MEDS: VANCOMYCIN HCL 1,000 MG, VIAL MATE ADAPTER 1 EACH in NS 250 ML IV SCH (08:12)
[2022-01-17] MEDS: LACTOBACILLUS ACIDOPHILUS CAP (BACID) PO SCH (08:12)
[2022-01-17] MEDS: VITAMIN D 1,000 INTERNATIONAL UNITS TABLET PO SCH (08:12)
[2022-01-17 08:13] VITALS: BP 128/76
[2022-01-17 10:26] LABS: PTH INTACT 55.4 PG/ML (18.5-88.0); TOTAL 25(OH) VITAMIN D 20.6 NG/ML (30.0-100.0)
[2022-01-17] MEDS ORDERED: DOXY-350 PO (11:54)
[2022-01-17] MEDS ORDERED: VANCOMYCIN HCL 750 MG, VIAL MATE ADAPTER 1 EACH in NS 250 ML IV SCH (20:00)
[2022-01-17] MEDS ORDERED: DOXYCYCLINE HYCLATE 100MG TABLET PO SCH (21:00)
== END 2022-01-17 12:33 | disposition home or self-care (01) | DRG 872 ==
LOC: M ED 06:52 → M ED INP 11:52 → ENRESERV 15:57 → M MSPAV 16:35
PROVIDERS: ADMIT Internal Medicine; ATTEND Internal Medicine
PROC: 0T9B70Z Drainage of Bladder with Drainage Device, Via Natural or Artificial Opening (ICD-10-PCS; principal; 2022-01-13)
DX: A41.9 Sepsis, unspecified organism (principal); N13.6 Pyonephrosis; N17.9 Acute kidney failure, unspecified; E87.0 Hyperosmolality and hypernatremia; N40.1 Benign prostatic hyperplasia with lower urinary tract symptoms; N32.0 Bladder-neck obstruction; N31.9 Neuromuscular dysfunction of bladder, unspecified; F17.290 Nicotine dependence, other tobacco product, uncomplicated; N18.30 Chronic kidney disease, stage 3 unspecified; I12.9 Hypertensive chronic kidney disease with stage 1 through stage 4 chronic kidney disease, or unspecified chronic kidney disease; R33.9 Retention of urine, unspecified; D64.9 Anemia, unspecified; B95.7 Other staphylococcus as the cause of diseases classified elsewhere; N30.90 Cystitis, unspecified without hematuria; Z79.899 Other long term (current) drug therapy

== ENCOUNTER → 2022-02-09 | Outpatient (CLI) | payer OTHER ==
[~2022-02-09] MED LIST changes: +DOXY-350 PO; +RISATAB3 PO
== END ==
LOC: M LABSMTC 11:16
PROVIDERS: ATTEND Anesthesiology
DX: Z01.818 Encounter for other preprocedural examination (principal); Z11.52 Encounter for screening for COVID-19

== ENCOUNTER → 2022-02-10 | Outpatient (CLI) | payer OTHER ==
[~2022-02-10] MED LIST changes: +BACT800T5 PO; +OXYC1TAB23 PO
== END ==
LOC: M LAB 13:58
PROVIDERS: ATTEND Family Medicine
DX: N20.0 Calculus of kidney (principal)

== ENCOUNTER 2022-02-14 06:42 | Day surgery (SDC) | payer OTHER ==
[~2022-02-14] VITALS: Ht 175.3 cm; Wt 77.1 kg
[~2022-02-14 06:42] MED LIST changes: -BACT800T5 PO; -OXYC1TAB23 PO; +ceFAZolin SOD 2 GM in IV 1 EA IV ONE
[2022-02-14] MEDS ORDERED: LR 1,000 ML IV SCH (07:40)
[2022-02-14] MEDS ORDERED: LIDOCAINE 2% 100MG/5ML SDV (FOR ANES.) As Ordered ONE (08:56)
[2022-02-14] MEDS ORDERED: propofoL 200 MG/20 ML VIAL As Ordered ONE (08:56)
[2022-02-14] MEDS ORDERED: MIDAZOLAM INJ 2MG/2ML VIAL (J2250 PER 1MG) As Ordered ONE (08:56)
[2022-02-14] MEDS ORDERED: fentaNYL 100 MCG/2 ML INJECTION As Ordered ONE (08:56)
[2022-02-14] MEDS ORDERED: dexameTHASONE 4 MG/ML 1ML VIAL (J1100 PER 1MG) As Ordered ONE (08:57)
[2022-02-14] MEDS ORDERED: ONDANSETRON 4MG/2ML VIAL As Ordered ONE (08:57)
[2022-02-14] MEDS ORDERED: LIDOCAINE 1% MDV 20ML VIAL As Ordered ONE (09:03)
[2022-02-14] MEDS ORDERED: BUPIVACAINE HCL 0.25% 10ML VIAL As Ordered ONE (09:03)
[2022-02-14] MEDS ORDERED: GLYCOPYRROLATE INJ 0.2 MG/ML 2 ML VIAL As Ordered ONE (09:37)
[2022-02-14] MEDS ORDERED: fentaNYL 100 MCG/2 ML INJECTION IV PRN (10:30)
[2022-02-14] MEDS ORDERED: ONDANSETRON 4MG/2ML VIAL IV PRN (10:30)
[2022-02-14] MEDS ORDERED: MEPERIDINE INJ 25 MG/ML VIAL (J2175) IV PRN (10:30)
[2022-02-14] MEDS ORDERED: NS 1,000 ML IV SCH (10:30)
[2022-02-14] MEDS ORDERED: oxyCODONE 5MG TAB PO PRN (10:30)
[2022-02-14] MEDS ORDERED: BACT800T5 PO (11:03)
[2022-02-14] MEDS ORDERED: OXYC1TAB23 PO (11:04)
[2022-02-14 11:50] VITALS: BP 152/86
[2022-02-14] MEDS ORDERED: PERCOCET 5MG/325MG TAB PO PRN (12:10)
== END 2022-02-14 12:00 | disposition home or self-care (01) ==
LOC: M SDC 06:42
PROVIDERS: ATTEND Urology
DX: R33.9 Retention of urine, unspecified (principal); I10 Essential (primary) hypertension; M10.9 Gout, unspecified; F17.290 Nicotine dependence, other tobacco product, uncomplicated; N40.0 Benign prostatic hyperplasia without lower urinary tract symptoms; Z79.899 Other long term (current) drug therapy
CPT/HCPCS: 51040; J0690; J1100; J2250; J2405; J3010